=== PATIENT | male | born 1995 | race Caucasian/White ===

== ENCOUNTER 2017-01-16 19:20 | Inpatient (IN) | payer OTHER ==
[~2017-01-16] VITALS: Ht 175.3 cm; Wt 67.6 kg
[2017-01-16 19:20] VITALS: BP 126/87; PULSE 128; RESP 20; TEMP 98.1; O2SAT 100
--- NOTE | 2017-01-16 19:21 | NUR ---
Patient to ER bed 7 to gown for evaluation. Side rails up.
--- NOTE | 2017-01-16 19:21 | NUR ---
Dr. Colvin at bedside examining the pt.
--- NOTE | 2017-01-16 19:21 | NUR ---
pt. to ER AAOx4 states that he smoked a lot of marijuana and now he thinks he is going to , denies any auditory or visual hallucinations, states " i think lord is mad at me for smoking too much and i won't live to see tomorrow" pt. appears to be agitated, crying, tachycardiac, on monitoring analyst
--- NOTE | 2017-01-16 19:30 | NUR ---
Tab Builder at bedside for blood draw. Patient identified X2
[2017-01-16 19:52] LABS: BASOPHILS % (AUTO) 0.7 % (0.0-2.0); EOSINOPHILS % (AUTO) 0.2 % (0.0-4.0); HEMATOCRIT 44.8 % (36-54); HEMOGLOBIN 14.6 g/dL (14.0-18.0); LYMPHOCYTES # (AUTO) 2.3 K/uL (1.0-5.5); LYMPHOCYTES % (AUTO) 33.3 % (20.5-51.5); MEAN CORPUSCULAR HEMOGLOBIN 29 pg (27-31); MEAN CORPUSCULAR HGB CONC 33 % (32-36); MEAN CORPUSCULAR VOLUME 88 fL (79.0-98.0); MONOCYTES # (AUTO) 0.4 K/uL (0.0-1.0); MONOCYTES % (AUTO) 5.7 % (1.7-9.3); NEUTROPHILS # (AUTO) 4.1 K/uL (1.8-7.7); NEUTROPHILS % (AUTO) 60.1 % (40.0-70.0); PLATELET COUNT (AUTO) 318 K/uL (130-430); RED BLOOD CELL COUNT(AUTO) 5.07 MIL/uL (4.2-6.2); RED CELL DISTRIBUTION WIDTH 12.9 % (9.0-15.0); WHITE BLOOD COUNT (AUTO) 6.9 K/uL (4.8-10.8)
[2017-01-16 19:58] LABS: CALCIUM 9.5 mg/dL (8.4-11.0); CREATININE 1.4 mg/dL (0.55-1.30); POTASSIUM 3.4 mmol/L (3.5-5.1)
[2017-01-16 20:05] LABS: ALBUMIN 4.8 g/dL (3.4-4.8); TOTAL BILIRUBIN 0.6 mg/dL (0.0-1.0); TOTAL PROTEIN, SERUM 8.1 g/dL (6.4-8.3)
--- NOTE | 2017-01-16 20:30 | NUR ---
# 20 gauge angiocath placed to LFA. Use of asceptic technique. Opsite placed over site. Blood return noted. Flushed with 10 cc of normal saline. No evidence of infiltration noted. Patient tolerated well.
[2017-01-16 20:36] LABS: BILIRUBIN,URINE NEGATIVE (NEGATIVE); BLOOD, URINE NEGATIVE (NEGATIVE); CLARITY/URINE HAZY (CLEAR); COLOR,URINE YELLOW (YELLOW); GLUCOSE,URINE NEGATIVE (NEGATIVE); KETONES,URINE NEGATIVE (NEGATIVE); LEUKOCYTE ESTERASE ,URINE TRACE (NEGATIVE); NITRITE, URINE NEGATIVE (NEGATIVE); PH,URINE 7.5 (5.0-8.0); PROTEIN URINE TRACE (NEGATIVE); UROBILINOGEN,URINE 0.2 (0.2-1.0)
[2017-01-16 20:45] LABS: BARBITURATE, URINE NEGATIVE (NEG <=200); BENZODIAZEPINE, URINE NEGATIVE (NEG <=150); CANNABINOID, URINE NEGATIVE (NEG <=50); COCAINE, URINE NEGATIVE (NEG <=150); METHAMPHETAMINES SCREEN,URINE NEGATIVE (NEG <=500); PHENCYCLIDINE SCREEN,URINE NEGATIVE (NEG <=25); URINE AMPHETAMINE NEGATIVE (NEG <=500); URINE METHADONE NEGATIVE (NEG <=200)
[2017-01-16] MEDS ORDERED: NACL 0.9% 1,000 ML IV ONE (20:45)
[2017-01-16 20:46] LABS: OPIATE, URINE NEGATIVE (NEG <=100); UR TRICYCLIC ANTIDEPRESSANTS NEGATIVE (NEG <=300); URINE OXYCODONE SCREEN NEGATIVE (NEG <=100); URINE PROPOXYPHENE SCREEN NEGATIVE (NEG <=300)
[2017-01-16 20:50] LABS: BACTERIA,URINE FEW /HPF (None Seen); RBC,URINE NONE SEEN /HPF (0-3)
[2017-01-16 20:51] LABS: MUCUS,URINE None Seen /LPF (None Seen)
[2017-01-16 20:54] LABS: URINE AMORPHOUS PHOSPHATES 1+ /HPF (None Seen)
--- NOTE | 2017-01-16 21:10 | NUR ---
PT. CALM AND COOPERATIVE AT THIS TIME, IV INTACT IV FLUIDS NS RUNNING @ 120ML/HR, NO INFILTRATION NOTED
--- NOTE | 2017-01-16 22:35 | NUR ---
PT. ASLEEP AT THIS TIME
--- NOTE | 2017-01-16 22:47 | NUR ---
PT. DENIES TAKING ANY PRESCRIBED MEDS
--- NOTE | 2017-01-16 22:51 | NUR ---
Patient will be admitted to care of DR. PECK. Admitted to MED SURG unit. Will go to room 121 C Belongings list completed. Summary report printed. Report will be given at bedside.
[2017-01-16] MEDS ORDERED: cefTRIAXone 1 GM IVPB PREMIX 50 ML IV ONE (23:00)
--- NOTE | 2017-01-16 23:01 | NUR ---
ADMIT NOTE Received pt from ER to the floor with a diagnosis of ACUTE PSYCHOSIS. Admission process initiated. patient oriented to pain management, safety and call light-teach back done.
--- NOTE | 2017-01-16 23:10 | NUR ---
PM ASSESSMENT: PATIENT BEING ADMITTED BY ASHLIE RODRIGUEZ.PATIENT IN BED AWAKE ORIENTED X3. FORGETFUL OF PLACE. ANSWER MOST QUESTIONS INCORRECTLY.ASKED IF HAS A ,SAYS LIVES IN A CAR.WHEN I SAW THOSE PEOPLE I TOLD THEM I AM NOT HURTING ANY BODY.SOMETIMES LIVES WITH HIS DAD. ROUTINE ADMISSION PROVIDED, CALL LIGHT AND PHONE SYSTEM. NEEDS FREQUENT REMINDERS. ROOM SET UP. INSTRUCTED TO CALL FOR ANY HELP OR DISCOMFORTS USING CALL [facility] WHICH IS AT REACH. USE URINAL TO VOID TO PREVENT FALL. DISCUSSED PLAN OF CARE FOR TONIGHT AND IN AM.BED IN LOW POSITION. HEART RATE BREATHING ARE REGULAR RHYTHM. BED IN LOW POSITION.
[2017-01-16 23:11] VITALS: BP 129/77; PULSE 97; RESP 18; TEMP 97.2; O2SAT 99
[2017-01-16] MEDS ORDERED: ACETAMINOPHEN 325 MG TABLET PO PRN (23:15)
[2017-01-16] MEDS ORDERED: ZOLPIDEM TARTRATE 5 MG TABLET PO PRN (23:15)
[2017-01-16] MEDS ORDERED: LORazepam 2 MG/ML VIAL IVP PRN (23:15)
[2017-01-16] MEDS ORDERED: POTASSIUM CHLORIDE 10 MEQ TAB.PRT.SR PO PRN (23:15)
[2017-01-16] MEDS ORDERED: DOCUSATE SODIUM 100 MG CAPSULE PO PRN (23:15)
[2017-01-16] MEDS ORDERED: MORPHINE 2 MG/ML INJ. SYRINGE IVP PRN (23:15)
[2017-01-16] MEDS ORDERED: ONDANSETRON HCL 4 MG/2 ML VIAL IVP PRN (23:15)
[2017-01-16] MEDS ORDERED: MAGNESIUM SULFATE 50 ML IV PRN (23:15)
--- NOTE | 2017-01-16 23:30 | NUR ---
NUTRITION: SANDWICHES, JELLO, JUICES ,CRACKERS GIVEN FOR SNACKS.
--- NOTE | 2017-01-16 23:40 | NUR ---
IVF OF NORMAL SALINE AT 100ML/HR STARTED. K LEVEL IS 3.4. KCL PO 40MG GIVEN.
[2017-01-16] MEDS: NACL 0.9% 1,000 ML IV SCH (23:48)
--- NOTE | 2017-01-16 23:55 | NUR ---
AMBIEN 10 MG PO GIVEN FOR SLEEP PER HIS REQUEST.
--- NOTE | 2017-01-17 00:30 | NUR ---
WATCHING TV SHOWS FOR NOW.
--- NOTE | 2017-01-17 02:15 | NUR ---
ROUNDS: 'PATIENT RESTING WITH EYES CLOSE. NO DISTRESS.
--- NOTE | 2017-01-17 04:30 | NUR ---
ROUNDS: PATIENT RESTING QUITELY WITH EYES CLOSE. BREATHING PATTERN REGULAR.
[2017-01-17 05:13] VITALS: BP 103/58; PULSE 47; RESP 17; TEMP 97.1; O2SAT 99
[2017-01-17 06:19] LABS: CALCIUM 8.3 mg/dL (8.4-11.0); CREATININE 1.09 mg/dL (0.55-1.30); POTASSIUM 3.9 mmol/L (3.5-5.1)
--- NOTE | 2017-01-17 06:25 | NUR ---
CLOSING: PATIENT SLEPT AT LONG INTERVALS.NO ACUTE DISTRESS. VOIDED. MORE APPROPRIATE THIS AM. WILL OBSERVE CLOSELY.
[2017-01-17 06:55] LABS: BASOPHILS % (AUTO) 0.5 % (0.0-2.0); EOSINOPHILS % (AUTO) 0.3 % (0.0-4.0); HEMATOCRIT 38.4 % (36-54); HEMOGLOBIN 12.8 g/dL (14.0-18.0); LYMPHOCYTES # (AUTO) 2.8 K/uL (1.0-5.5); LYMPHOCYTES % (AUTO) 34.7 % (20.5-51.5); MEAN CORPUSCULAR HEMOGLOBIN 30 pg (27-31); MEAN CORPUSCULAR HGB CONC 33 % (32-36); MEAN CORPUSCULAR VOLUME 89 fL (79.0-98.0); MONOCYTES # (AUTO) 0.5 K/uL (0.0-1.0); MONOCYTES % (AUTO) 6.1 % (1.7-9.3); NEUTROPHILS # (AUTO) 4.9 K/uL (1.8-7.7); NEUTROPHILS % (AUTO) 58.4 % (40.0-70.0); PLATELET COUNT (AUTO) 242 K/uL (130-430); RED BLOOD CELL COUNT(AUTO) 4.33 MIL/uL (4.2-6.2); RED CELL DISTRIBUTION WIDTH 13.5 % (9.0-15.0); WHITE BLOOD COUNT (AUTO) 8.2 K/uL (4.8-10.8)
--- NOTE | 2017-01-17 07:20 | NUR ---
rn notes: patient is aao 3-4. afebrile. vss stable. lungs bilaterally clear. abdomen soft and non distended. has iv access on the rt forearm #20. normal saline at 100cc/hr infusing on well. call lights within reach. safety measures maintained. informed patient to call for assistance. bed in low position. no pain nor distress noted.
[2017-01-17 07:51] VITALS: BP 125/60; PULSE 71; RESP 18; TEMP 96.9; O2SAT 99
--- NOTE | 2017-01-17 07:57 | NUR ---
Dr Wolf came and evaluate the patient. at this time.
--- NOTE | 2017-01-17 07:57 | NUR ---
notes: patient is aaox 3-4. afebrile. vss stable. has iv access on the left forearm #20. normal saline at 100cc/hr infusing on well. no pain nor distress noted. verbalized lives in a car and he marijuana many times. bed in low position. call lights within reach. safety measures maintained.
--- NOTE | 2017-01-17 08:29 | NUR ---
Consult was called Re: Psychosis,Poss Schizophrenia spoke with Indigo from Dr Kurt siddiqui.
--- NOTE | 2017-01-17 08:59 | NUR ---
Dr Hicks came and evaluate the patient.
[2017-01-17] MEDS: NACL 0.9% 1,000 ML IV SCH ×2 (09:07→21:23)
[2017-01-17] MEDS: OLANZapine 5 MG TABLET PO SCH (09:07)
--- NOTE | 2017-01-17 09:08 | NUR ---
due medication given as ordered. made comfortable. still eating at this time.
--- NOTE | 2017-01-17 10:00 | NUR ---
goes back to sleep. no pain nor distress noted. bed in low position.
--- NOTE | 2017-01-17 12:00 | NUR ---
hanged a new iv bag of normal saline. patient is saying inappropriate things. and some lucid intervals.
[2017-01-17 12:30] VITALS: BP 103/51; PULSE 93; RESP 16; TEMP 97.7; O2SAT 98
--- NOTE | 2017-01-17 15:31 | NUR ---
Social Service Note: Pt referred to social studies department chair by nursing due to pt's history of marijuana. RHYTHMIC GYMNASTICS COACH met with pt at bedside; pt appears alert/oriented x4. Pt states that he has been staying in his car; pt reports having problems with his father. Pt states that he stays with friends on and off. Pt reports marijuana use. Pt states that upon discharge he will be returning to his car. Pt states that he has no needs/concerns at this time. [facility] has provided pt with homeless assistance packet, local [facility] clinics, outpatient mental health resources, substance abuse treatment resources, and transportation resources. [facility] has placed homeless waiver in pt's chart to be signed upon discharge. RHYTHMIC GYMNASTICS COACH will remain available for support and will follow up as needed.
--- NOTE | 2017-01-17 16:00 | NUR ---
ambulatory goes to the bathroom and had a shower. no pain nor other distress noted.
[2017-01-17 16:17] VITALS: BP 121/61; PULSE 74; RESP 16; TEMP 97.8; O2SAT 100
--- NOTE | 2017-01-17 18:00 | NUR ---
able to eat good dinner. sleeps a lot. no pain nor distress noted.
--- NOTE | 2017-01-17 19:21 | NUR ---
sbar report given to incoming nurse Roderick MAYER
[2017-01-17 20:06] VITALS: BP 123/74; PULSE 75; RESP 18; TEMP 97.6; O2SAT 96
--- NOTE | 2017-01-17 20:54 | NUR ---
Patient awake alert verbally responsive on room air skin dry warm encourage position change call grant with patient safety measures implemented / .
[2017-01-17 23:35] VITALS: BP 101/45; PULSE 50; RESP 16; TEMP 96.8; O2SAT 99
--- NOTE | 2017-01-18 00:21 | NUR ---
Patient awake on & off fall measures implemented , call grant with patient on room air chest movement symmetrical unlabored / .
--- NOTE | 2017-01-18 01:13 | NUR ---
SAFETY measures implemented patient verbally responsive bed to low position visual monitor frequently continued / .
--- NOTE | 2017-01-18 04:15 | NUR ---
Hourly Rounding patient resting chest movement symmetrical awake on and off assist as needed VS stable wnl / .
[2017-01-18 04:54] VITALS: BP 126/61; PULSE 50; RESP 17; TEMP 97.1; O2SAT 100
--- NOTE | 2017-01-18 05:12 | NUR ---
SAFETY measures implemented patient resting respirations regular also unlabored no acute distress .
[2017-01-18] MEDS: NACL 0.9% 1,000 ML IV SCH (05:35)
[2017-01-18 06:20] LABS: BASOPHILS % (AUTO) 0.3 % (0.0-2.0); EOSINOPHILS # (AUTO) 0.1 K/uL (0.0-0.4); EOSINOPHILS % (AUTO) 2.6 % (0.0-4.0); HEMATOCRIT 39.2 % (36-54); HEMOGLOBIN 13.5 g/dL (14.0-18.0); LYMPHOCYTES # (AUTO) 3.1 K/uL (1.0-5.5); LYMPHOCYTES % (AUTO) 64.8 % (20.5-51.5); MEAN CORPUSCULAR HEMOGLOBIN 30 pg (27-31); MEAN CORPUSCULAR HGB CONC 34 % (32-36); MEAN CORPUSCULAR VOLUME 88 fL (79.0-98.0); MONOCYTES # (AUTO) 0.3 K/uL (0.0-1.0); MONOCYTES % (AUTO) 6.9 % (1.7-9.3); NEUTROPHILS # (AUTO) 1.2 K/uL (1.8-7.7); NEUTROPHILS % (AUTO) 25.4 % (40.0-70.0); PLATELET COUNT (AUTO) 235 K/uL (130-430); RED BLOOD CELL COUNT(AUTO) 4.45 MIL/uL (4.2-6.2); RED CELL DISTRIBUTION WIDTH 13.3 % (9.0-15.0); WHITE BLOOD COUNT (AUTO) 4.7 K/uL (4.8-10.8)
[2017-01-18 06:34] LABS: CALCIUM 8.2 mg/dL (8.4-11.0); CREATININE 1.21 mg/dL (0.55-1.30); POTASSIUM 3.8 mmol/L (3.5-5.1)
[2017-01-18 08:00] VITALS: BP 120/68; PULSE 52; RESP 18; TEMP 97.1; O2SAT 99
--- NOTE | 2017-01-18 08:00 | NUR ---
Notes Patient A/O x4. Respirations even and unlabored. IV access patent. Afebrile. Denies general discomfort at this time. Patient stated "I didn't know people from the past were watching me". Patient able to verbally make needs known and encouraged to do so. Fall and safety precautions in place. Bed in lowest and locked position.
[2017-01-18] MEDS: OLANZapine 5 MG TABLET PO SCH (08:10)
--- NOTE | 2017-01-18 10:30 | NUR ---
Notes Patient has been cleared for discharge. Patient will be provided with follow up information per MD orders. Dr. Wolf and case management have been made aware patient is living in car.
[2017-01-18 12:08] VITALS: BP 122/68; PULSE 60; RESP 15; TEMP 98.1; O2SAT 99
--- NOTE | 2017-01-18 15:14 | NUR ---
Notes Calls made out to [employer] [facility] [address] in [place], also to [employer] [facility] in [place] [address]. Employees of both gas stations said no car that fits the description given by the patient is on their property. Patient was made aware and he informed me he would go home. Call to father's phone was made at patient's request. No answer, message left on recording device.
[2017-01-18 16:03] VITALS: BP 138/80; PULSE 58; RESP 18; TEMP 98.2; O2SAT 100
[2017-01-18 16:08] VITALS: BP 138/80; PULSE 58; RESP 16; TEMP 98.2; O2SAT 100
--- NOTE | 2017-01-18 17:00 | NUR ---
Notes Taxi service was called and scheduled. Cab will be at hospital in 30-45 minutes. Cab service will call nurses station to inform us of cab arrival.
--- NOTE | 2017-01-18 18:22 | NUR ---
Notes Multiple attempts have been made to taxi service in regards to cab status. No answer.
--- NOTE | 2017-01-18 19:43 | NUR ---
Closing Note Patient care endorsed to oncoming shift nurse.
== END 2017-01-18 19:45 | disposition home or self-care (01) | DRG 812 ==
LOC: SED 19:20 → SMU 22:40
PROVIDERS: ADMIT General Practice; ATTEND General Practice
DX: T40.7X1A Poisoning by cannabis (derivatives), accidental (unintentional), initial encounter (principal); N17.0 Acute kidney failure with tubular necrosis; F23 Brief psychotic disorder; F12.20 Cannabis dependence, uncomplicated; E83.51 Hypocalcemia; E87.6 Hypokalemia; Z59.0 Homelessness; Y92.89 Other specified places as the place of occurrence of the external cause
CPT/HCPCS: 36415; 80048; 80053; 80307; 81000-TC; 83735-TC; 85025; 87086; 96365; 99285; J0696; J7030